=== PATIENT | female | born 1955 | race Caucasian/White ===

== ENCOUNTER 2017-10-22 13:38 | Inpatient (IN) ==
[2017-10-22] MEDS ORDERED: Vancomycin Inj 1,500 MG in Sodium Chlor 0.9% Inj 500 ML IV.SIG ONE (14:53)
[2017-10-22 15:50] LABS: Baso % (Auto) 0.7 % (0.0-2.0); Eos % (Auto) 0.6 % (0.0-4.0); Hematocrit 43.4 % (35.0-46.0); Hemoglobin 14.8 gm/dL (11.6-15.3); Lymph # (Auto) 1.4 th/mm3 (1.0-4.8); Lymph % (Auto) 20.9 % (9.0-44.0); Mean Corpuscular HGB Conc 34.1 % (32.0-36.0); Mean Corpuscular Hemoglobin 32.1 pg (27.0-34.0); Mean Corpuscular Volume 94.4 fL (80.0-100.0); Mean Platelet Volume 7.5 fL (7.0-11.0); Mono # (Auto) 0.5 th/mm3 (0.0-0.9); Mono % (Auto) 6.9 % (0.0-8.0); Neut # (Auto) 4.8 th/mm3 (1.8-7.7); Neut % (Auto) 70.9 % (16.0-70.0); Platelet Count 244 th/mm3 (150-450); Red Cell Distribution Width 12.2 % (11.6-17.2); White Blood Count 6.7 th/mm3 (4.0-11.0)
[2017-10-22 16:06] LABS: Calcium 9.2 mg/dL (8.5-10.1); Carbon Dioxide 25.2 meq/L (21.0-32.0); Potassium 3.8 meq/L (3.5-5.1)
[2017-10-22] MEDS ORDERED: Vancomycin Consult Pharmacy 1 EACH OTHER SCH (17:00)
--- NOTE | 2017-10-22 17:10 | P.HPIM ---
History of Present Illness Primary Care Physician: Jeffery Wayne DO History of Present Illness: Pt is 61 yo female with hx breast ca and htn. Presents after 1 month of dealing with left plantar foot wound. She is unaware of how it occurred but developed a left plantar wound that she says has been debrided by podiatry 2-3 times. She says the wound used to be red and has been treated with doxycycline, then cipro and clindamycin until this past Wednesday. Went for MRI of the foot and possible abscess/fluid collection near the first metatarsophalangeal joint. She was sent to ED by podiatry and admission requested for drainage. ED started vancomycin. PMH right breast ca. s/p lumpectomy and radiation left breast dcis. s/p tamoxifen htn hyperlipidemia left tka , appe,hysterectomy SH. 1-2 glasses wine daily no tobacco FH nc - Diagnosis (1) Foot abscess, left Inpatient Certification: I certify that the inpatient services were ordered in accordance with Medicare regulations governing the order. This includes certification that hospital inpatient services are reasonable and necessary and in the case of services not specified as inpatient-only under 42 CFR 419.22(n), that they are appropriately provided as inpatient services in accordance to with the 2-midnight benchmark under 43 CFR 412.3(e) Estimated Total Length of Stay (Days): 3 Plans for Post Hospital Care: Home Review of Systems left foot wound PMFSH - History History Provided By: Patient - Medical History Medical History: Medical History (Last Updated 10/22/17 @ 14:53 by Priscila Chapin) Breast cancer HLD (hyperlipidemia) HTN (hypertension) History of hysterectomy Lymphedema - Surgical History Surgical History: Surgical History (Last Updated 10/22/17 @ 14:53 by Priscila Chapin) History of appendectomy History of left knee replacement History of left knee surgery Status post right breast lumpectomy - Tobacco History Second Hand Smoke Exposure: No Smoking Status: Former smoker - Alcohol History How Often Do You Have a Drink Containing Alcohol: 4 or more times a week - Substance Use History Substance History: No History of Abuse - Travel History Recent Travel in the [place] Within the Last 8 Weeks: No Recent Travel Out of the Country Within the Last 8 Weeks: No - Immunization History Tetanus Immunization: <5 Years Hx Influenza Vaccine This Season: Yes Medications and Allergies Active Medications: Active Medications Atorvastatin Calcium (Lipitor) 20 mg PO HS [facility] Pharmacy Profile Note (Vancomycin Consult Pharmacy) 0 mls @ 0 mls/hr [facility] [place] Lisinopril (Prinivil) 20 mg PO BID [facility] Allergies Allergy/AdvReac Type Severity Reaction Status Date / Time celecoxib [From Celebrex] Allergy Mild rasH Verified 10/22/17 14:52 loratadine [From Claritin] Allergy Mild rash Verified 10/22/17 14:53 Penicillins Allergy Mild rasH Verified 10/22/17 14:52 Sulfa (Sulfonamide Allergy rash Verified 10/22/17 14:52 Antibiotics) Home Medications Medication Instructions Recorded Confirmed Type atorvastatin 20 mg PO HS 10/22/17 10/22/17 History fosinopril 20 mg PO BID 10/22/17 10/22/17 History Exam Vital signs: Vital Signs 10/22/17 13:42 Temperature 98.7 F Pulse Rate 85 Respiratory Rate 14 Blood Pressure 156/91 H Pulse Oximetry 96 Intake & Output 10/21/17 10/22/17 10/22/17 18:59 06:59 18:59 Weight 64.41 kg heart reg lung cta abd s/nt ext no pitting left plantar. between first/second met head small area of hemosiderin. no redness or drainage. some fluctuance. callus noted. Results - Labs CBC & Chem 7: 10/22/17 15:35 10/22/17 15:35 Labs: Short CBC 10/22/17 Range/Units 15:35 WBC 6.7 (4.0-11.0) th/mm3 Hgb 14.8 (11.6-15.3) gm/dL Hct 43.4 (35.0-46.0) % Plt Count 244 (150-450) th/mm3 BMP 10/22/17 15:35 Sodium 138 Potassium 3.8 Chloride 104 Carbon Dioxide 25.2 BUN 18 Creatinine 0.69 Calcium 9.2 Caprini VTE Risk Assessment Caprini VTE Risk Assessment: No/Low Risk (score <= 1) Caprini Risk Assessment Model: Point Value = 1 Point Value = 2 Point Value = 3 Point Value = 5 Age 41-60 Minor surgery BMI > 25 kg/m2 Swollen legs Varicose veins or History of unexplained or recurrent spontaneous Oral contraceptives or hormone replacement Sepsis (< 1 month) Serious lung disease, including pneumonia (< 1 month) Abnormal pulmonary function Acute myocardial infarction Congestive heart failure (< 1 month) History of inflammatory bowel disease Medical patient at bed rest Age 61-74 Arthroscopic surgery Major open surgery (> 45 min) Laparoscopic surgery (> 45 min) Malignancy Confined to bed (> 72 hours) Immobilizing plaster cast Central venous access Age >= 75 History of VTE Family history of VTE Factor V Leiden Prothrombin [id number] Lupus anticoagulant Anticardiolipin antibodies Elevated serum homocysteine Heparin-induced thrombocytopenia Other congenital or acquired thrombophilia Stroke (< 1 month) Elective arthroplasty Hip, pelvis, or leg fracture Acute spinal cord injury (< 1 month) Prophylaxis Regimen: Total Risk Factor Score Risk Level Prophylaxis Regimen 0-1 Low Early ambulation 2 Moderate Order ONE of the following: *Sequential Compression Device (SCD) *Heparin 5000 units SQ BID 3-4 Higher Order ONE of the following medications: *Heparin 5000 units SQ TID *Enoxaparin/Lovenox 40 mg SQ daily (WT < 150 kg, CrCl > 30 mL/min) *Enoxaparin/Lovenox 30 mg SQ daily (WT < 150 kg, CrCl > 10-29 mL/min) *Enoxaparin/Lovenox 30 mg SQ BID (WT < 150 kg, CrCl > 30 mL/min) AND/OR *Sequential Compression Device (SCD) 5 or more Highest Order ONE of the following medications: *Heparin 5000 units SQ TID (Preferred with Epidurals) *Enoxaparin/Lovenox 40 mg SQ daily (WT < 150 kg, CrCl > 30 mL/min) *Enoxaparin/Lovenox 30 mg SQ daily (WT < 150 kg, CrCl > 10-29 mL/min) *Enoxaparin/Lovenox 30 mg SQ BID (WT < 150 kg, CrCl > 30 mL/min) AND *Sequential Compression Device (SCD) Assessment and Plan - Assessment (1) Foot abscess, left Code(s): L02.612 - Cutaneous abscess of left foot Status: Acute Plan: 1. left foot/plantar surface of first metatarsophalangeal joint fluid collection with inflammatory stranding 2. htn 3. hx breast ca discussed with Dr Garrison. plan for aspiration of the fluid collection tomorrow unless significant improvement overnight after abx. cont her home medications probable dc home tomorrow
[2017-10-22 17:57] LABS: Prothrombin Time 10.1 sec (9.8-11.6)
--- NOTE | 2017-10-22 18:14 | ED ---
HPI General Chief complaint: Extremity Injury, Lower Stated complaint: dr dominique Time Seen by Provider: 10/22/17 14:26 Source: patient and old records reviewed Mode of arrival: ambulatory Limitations: no limitations History of Present Illness HPI narrative: Patient arrives with a deep abscess in the left foot. She was at podiatry today and was advised to come to the ED plan for admission and a plan to undergo surgical incision and debridement. Patient has tried Keflex followed by clindamycin followed by [facility] over the course of the last month. She has not had any relief. Risk factors are unclear however the patient walks in the [place] and believes she may have caught the foot. MD complaint: other (foot abscess) Onset (ago): month(s) (1) Location: L foot Severity: moderate Relieving factors: none Context: other (unknown etiology, abx x 1 month) Related Data Home Medications Medication Instructions Recorded Confirmed atorvastatin 20 mg PO HS 10/22/17 10/22/17 fosinopril 20 mg PO BID 10/22/17 10/22/17 Allergies Allergy/AdvReac Type Severity Reaction Status Date / Time celecoxib [From Celebrex] Allergy Mild rasH Verified 10/22/17 14:52 loratadine [From Claritin] Allergy Mild rash Verified 10/22/17 14:53 Penicillins Allergy Mild rasH Verified 10/22/17 14:52 Sulfa (Sulfonamide Allergy rash Verified 10/22/17 14:52 Antibiotics) Review of Systems ROS: all other systems reviewed are negative PMFSH Medical History Medical History Breast cancer (Acute) HLD (hyperlipidemia) (Acute) HTN (hypertension) (Acute) History of hysterectomy (Acute) Lymphedema (Acute) Surgical History Surgical History History of appendectomy (Acute) History of left knee replacement (Acute) History of left knee surgery (Acute) Status post right breast lumpectomy (Acute) Social History Social History Substance History: No History of Abuse Second Hand Smoke Exposure: No Smoking Status: Former smoker How Often Do You Have a Drink Containing Alcohol: 4 or more times a week Recent Travel in [facility] within the Last 8 Weeks: No Recent Out of Country Travel within the Last 8 Weeks: No Immunization History Tetanus Immunization: <5 Years Hx Influenza Vaccine This Season: Yes Exam Narrative Exam Narrative: GENERAL: 61-year-old female pleasant well-nourished well- developed no acute distress SKIN: Focused skin assessment warm/dry. HEAD: Atraumatic. Normocephalic. EYES: Pupils equal and round. No scleral icterus. No injection or drainage. ENT: No nasal bleeding or discharge. Mucous membranes pink and moist. NECK: Trachea midline. No JVD. CARDIOVASCULAR: Regular rate and rhythm. No murmur appreciated. RESPIRATORY: No accessory muscle use. Clear to auscultation. Breath sounds equal bilaterally. GASTROINTESTINAL: Abdomen soft, non-tender, nondistended. Hepatic and splenic margins not palpable. MUSCULOSKELETAL: There is minimal swelling overlying the metatarsal head on the left side without significant overlying skin change. MSK is otherwise normal. NEUROLOGICAL: Awake and alert. No obvious cranial nerve deficits. Motor grossly within normal limits. Normal speech. PSYCHIATRIC: Appropriate mood and affect; insight and judgment normal. Course Initial Documented Vital Signs Temperature 98.7 F 10/22/17 13:42 Pulse Rate 85 10/22/17 13:42 Respiratory Rate 14 10/22/17 13:42 Blood Pressure 156/91 H 10/22/17 13:42 Pulse Oximetry 96 10/22/17 13:42 Last Documented Vital Signs Temperature 98.7 F 10/22/17 13:42 Pulse Rate 91 H 10/22/17 17:43 Respiratory Rate 18 10/22/17 17:43 Blood Pressure 169/82 H 10/22/17 17:43 Pulse Oximetry 98 10/22/17 17:43 Medical Decision Making MDM Narrative Medical decision making narrative: The patient will be admitted for a podiatry consultation. Case discussed with Dr. Brasher for [facility]. Vancomycin started here. Case discussed with Dr. Araujo for podiatry. N.p.o. past midnight recommended. Lab Data Lab results reviewed: Yes I reviewed the patient's lab results. Result diagrams: 10/22/17 15:35 10/22/17 15:35 Lab Results 10/22/17 10/22/17 10/22/17 Range/Units 15:35 15:35 17:29 WBC 6.7 (4.0-11.0) th/mm3 RBC 4.60 (4.00-5.30) mil/mm3 Hgb 14.8 (11.6-15.3) gm/dL Hct 43.4 (35.0-46.0) % MCV 94.4 (80.0-100.0) fL MCH 32.1 (27.0-34.0) pg MCHC 34.1 (32.0-36.0) % RDW 12.2 (11.6-17.2) % Plt Count 244 (150-450) th/mm3 MPV 7.5 (7.0-11.0) fL Neut % (Auto) 70.9 H (16.0-70.0) % Lymph % (Auto) 20.9 (9.0-44.0) % [place]yer % (Auto) 6.9 (0.0-8.0) % Eos % (Auto) 0.6 (0.0-4.0) % Baso % (Auto) 0.7 (0.0-2.0) % Neut # (Auto) 4.8 (1.8-7.7) th/mm3 Lymph # (Auto) 1.4 (1.0-4.8) th/mm3 [place]yer # (Auto) 0.5 (0.0-0.9) th/mm3 Eos # (Auto) 0.0 (0.0-0.4) th/mm3 Baso # (Auto) 0.0 (0.0-0.2) th/mm3 WBC Differential . Differential Comment Auto diff final PT 10.1 (9.8-11.6) sec INR 1.0 Ratio APTT (24.3-30.1) sec Sodium 138 (136-145) meq/L Potassium 3.8 (3.5-5.1) meq/L Chloride 104 (98-107) meq/L Carbon Dioxide 25.2 (21.0-32.0) meq/L Anion Gap 9 (5-15) meq/L BUN 18 (7-18) mg/dL Creatinine 0.69 (0.50-1.00) mg/dL Estimated GFR 86 L (>89) mL/min Random Glucose 100 (74-106) mg/dL Calcium 9.2 (8.5-10.1) mg/dL 10/22/17 Range/Units 17:29 WBC (4.0-11.0) th/mm3 RBC (4.00-5.30) mil/mm3 Hgb (11.6-15.3) gm/dL Hct (35.0-46.0) % MCV (80.0-100.0) fL MCH (27.0-34.0) pg MCHC (32.0-36.0) % RDW (11.6-17.2) % Plt Count (150-450) th/mm3 MPV (7.0-11.0) fL Neut % (Auto) (16.0-70.0) % Lymph % (Auto) (9.0-44.0) % Sawyer % (Auto) (0.0-8.0) % Eos % (Auto) (0.0-4.0) % Baso % (Auto) (0.0-2.0) % Neut # (Auto) (1.8-7.7) th/mm3 Lymph # (Auto) (1.0-4.8) th/mm3 [place]yer # (Auto) (0.0-0.9) th/mm3 Eos # (Auto) (0.0-0.4) th/mm3 Baso # (Auto) (0.0-0.2) th/mm3 WBC Differential Differential Comment PT (9.8-11.6) sec INR Ratio APTT 22.2 L (24.3-30.1) sec Sodium (136-145) meq/L Potassium (3.5-5.1) meq/L Chloride (98-107) meq/L Carbon Dioxide (21.0-32.0) meq/L Anion Gap (5-15) meq/L BUN (7-18) mg/dL Creatinine (0.50-1.00) mg/dL Estimated GFR (>89) mL/min Random Glucose (74-106) mg/dL Calcium (8.5-10.1) mg/dL Discharge Plan Discharge Disposition Patient Disposition: 30 Still Patient Physicians Team ED Provider: [place] Primary Care Provider: Jeffery Wayne Attending Provider: Kali Brasher Other Providers: Sulaiman Araujo Discharge Interventions Interventions: Vital Signs Last Done: 10/22/17 13:42 Status ED Status: Admitted Patient
[2017-10-22] MEDS: Lisinopril 20 MG Tablet PO SCH (21:57)
[2017-10-22] MEDS ORDERED: Lidocaine 1% Inj 50 ML Vial INFILTRATN ONE (22:24)
--- NOTE | 2017-10-22 23:35 | MB ---
cc: Sulaiman GarrisonM DATE: 10/22/2017 REASON FOR CONSULTATION: Evaluate for left lower extremity abscess/cellulitis, injury. HISTORY OF PRESENT ILLNESS: This is a 61-year-old female who is known to my partner, Dr. Anthony. The patient has undergone Keflex, Cipro and clindamycin over the past month and has not had any significant relief. Upon receiving a MRI, there was noted to be a positive abscess in the plantar aspect of the first MPJ. I am the cover for my group. I have seen the patient at bedside. The patient is having only mild to moderate symptoms, at best. She does have a history of a lipoma that had to be treated by dermatology. She does not recall any significant bacterial growth. She is here today to have the foot evaluated for possible incision and drainage and IV antibiotics. The patient does admit to an abrasion walking on the beach every day. She does not recall any obvious puncture wounds. This has been going on for about a month. PAST MEDICAL HISTORY: Positive for breast cancer, hyperlipidemia, hypertension, hysterectomy and lymphedema. PAST SURGICAL HISTORY: Appendectomy, history of left knee replacement and right breast lumpectomy. SOCIAL HISTORY: Former smoker. Alcohol, 4 or more times a week. IMAGING DATA: Outpatient MRI studies apparent for negative for osteomyelitis, but possible abscess or fluid collection beneath the left first MPJ. OUTPATIENT MEDICATIONS: Reviewed and verified. INPATIENT MEDICATIONS: The patient is receiving vancomycin. Please see complete medication list in the chart. ALLERGIES: CELECOXIB, LORATADINE, PENICILLINS AND SULFA. PHYSICAL EXAMINATION: VITAL SIGNS: Temperature 98.7, pulse rate 91, respiratory rate 18, blood pressure 169/82. The patient is sating 98% on room air. GENERAL: This is an alert and oriented female seen at bedside exhibiting nonlabored respirations. She is verbal and appropriate. BILATERAL LOWER EXTREMITIES: Upon examining the left lower extremity, there appears to be superficial hemorrhagic callus in the plantar aspect of the first MPJ. Upon comparing to the contralateral extremity, there is mild swelling. There is no obvious redness. There is no obvious extreme pain, only mild pain. Upon range of motion of digits, there is no crepitus or instability. Pedal pulses are fully palpable. Sensation appeared to be intact. LABORATORY DATA: White blood cells 6.7, hemoglobin and hematocrit 14 and 43, platelet count 244. Chem-7: Sodium 138, potassium 3.8, chloride 104, CO2 of 25.2, BUN 18, creatinine 0.69, glucose 100. ASSESSMENT: Left foot deep abscess versus bursa. PLAN: Recommending IV antibiotics overnight. We will evaluate the patient in the morning; however, may need aspiration of the area versus incision and drainage. I appreciate medicine admitting this patient and assisting with antibiotic management. I discussed the case with medicine. I will see the patient in the a.m. for likely aspiration of the area if there is no improvement. BHAVYA Jose/melissa , 10:23 PM , 10:31 PM
--- NOTE | 2017-10-23 09:46 | P.PNIM ---
Subjective Interval history: Pt feeling well this Less pain in the left foot Afebrile Physical Exam Vital signs: Vital Signs 10/22/17 13:42 10/22/17 17:43 10/22/17 22:20 Temperature 98.7 F 97.5 F L Pulse Rate 85 91 H 86 Respiratory Rate 14 18 16 Blood Pressure 156/91 H 169/82 H 205/95 H Pulse Oximetry 96 98 98 10/23/17 00:00 10/23/17 07:58 Temperature 97.7 F 98.1 F Pulse Rate 84 75 Respiratory Rate 16 18 Blood Pressure 159/94 H 160/78 H Pulse Oximetry 99 97 Intake & Output 10/22/17 10/23/17 10/23/17 18:59 06:59 18:59 Intake Total 210 / 210 Balance 210 / 210 Weight 64.41 kg 65 kg Intake: Oral 210 / 210 Other: # Voids 3 Narrative: General: NAD, AAOx3 Chest: CTA Cardiac: Regular Abd: +BS, soft ND/NT Ext: Left foot with an area between first/second met head with a callus with a small area of hemosiderin. No redness or drainage. + fluctuance. Results - Labs CBC & Chem 7: 10/22/17 15:35 10/22/17 15:35 Laboratory Results - last 24 hr 10/22/17 10/22/17 10/22/17 15:35 15:35 17:29 WBC 6.7 RBC 4.60 Hgb 14.8 Hct 43.4 MCV 94.4 MCH 32.1 MCHC 34.1 RDW 12.2 Plt Count 244 MPV 7.5 Neut % (Auto) 70.9 H Lymph % (Auto) 20.9 [place] % (Auto) 6.9 Eos % (Auto) 0.6 Baso % (Auto) 0.7 Neut # (Auto) 4.8 Lymph # (Auto) 1.4 [place] # (Auto) 0.5 Eos # (Auto) 0.0 Baso # (Auto) 0.0 WBC Differential . Differential Comment Auto diff final PT 10.1 INR 1.0 APTT Sodium 138 Potassium 3.8 Chloride 104 Carbon Dioxide 25.2 Anion Gap 9 BUN 18 Creatinine 0.69 Estimated GFR 86 L Random Glucose 100 Calcium 9.2 10/22/17 17:29 WBC RBC Hgb Hct MCV MCH MCHC RDW Plt Count MPV Neut % (Auto) Lymph % (Auto) [place] % (Auto) Eos % (Auto) Baso % (Auto) Neut # (Auto) Lymph # (Auto) [place] # (Auto) Eos # (Auto) Baso # (Auto) WBC Differential Differential Comment PT INR APTT 22.2 L Sodium Potassium Chloride Carbon Dioxide Anion Gap BUN Creatinine Estimated GFR Random Glucose Calcium Assessment and Plan - Assessment (1) Foot abscess, left Code(s): L02.612 - Cutaneous abscess of left foot Status: Acute Plan: Left foot/plantar surface of first metatarsophalangeal joint fluid collection with inflammatory stranding - Podiatry is following. - Pt is planned for aspiration of the fluid collection today at bedside - Cont IV Vancomycin - Supportive care - Further recommendations as the case develops HTN - Home meds continued Hx breast ca
--- NOTE | 2017-10-23 10:08 | P.PNPOD ---
Subjective Interval history: Left foot improved Physical Exam Vital signs: Vital Signs 10/22/17 13:42 10/22/17 17:43 10/22/17 22:20 Temperature 98.7 F 97.5 F L Pulse Rate 85 91 H 86 Respiratory Rate 14 18 16 Blood Pressure 156/91 H 169/82 H 205/95 H Pulse Oximetry 96 98 98 10/23/17 00:00 10/23/17 07:58 Temperature 97.7 F 98.1 F Pulse Rate 84 75 Respiratory Rate 16 18 Blood Pressure 159/94 H 160/78 H Pulse Oximetry 99 97 Intake & Output 10/22/17 10/23/17 10/23/17 18:59 06:59 18:59 Intake Total 210 / 210 Balance 210 / 210 Weight 64.41 kg 65 kg Intake: Oral 210 / 210 Other: # Voids 3 - Constitutional no acute distress - Neurological Alert and oriented x3 - Routine Extremities Exam Present: pulses intact, normal capillary refill, tenderness. Absent: edema Comments: Left lower extremity first MPJ, mild pain plantar lateral first MPJ no obvious fluctuance no obvious erythema superficial dried blood seen along plantar callus that does not appear to be communicating ulcer or abscess good range of motion of digits, slight improvement in clinical presentation in the last 24 hours Medications and Allergies Active Medications: Active Medications Atorvastatin Calcium (Lipitor) 20 mg PO [facility] Last Admin: 10/22/17 21:57 Dose: 20 mg Pharmacy Profile Note (Vancomycin Consult Pharmacy) 0 mls @ 0 mls/hr [facility] Vancomycin HCl 1,500 mg/ (Sodium Chloride) 515 mls @ 250 mls/hr IV.SIG Q24H [facility] Lisinopril (Prinivil) 20 mg PO BID [facility] Last Admin: 10/22/17 21:57 Dose: 20 mg Miscellaneous Information ([facility] Ordered Lab Info) 1 each OTHER ONCE ONE Stop: 10/25/17 14:46 Allergies Allergy/AdvReac Type Severity Reaction Status Date / Time celecoxib [From Celebrex] Allergy Mild rasH Verified 10/22/17 14:52 loratadine [From Claritin] Allergy Mild rash Verified 10/22/17 14:53 Penicillins Allergy Mild rasH Verified 10/22/17 14:52 Sulfa (Sulfonamide Allergy rash Verified 10/22/17 14:52 Antibiotics) Home Medications Medication Instructions Recorded Confirmed Type RX: atorvastatin 20 mg PO 10/22/17 10/22/17 History RX: fosinopril 20 mg PO BID 10/22/17 10/22/17 History Results - Labs CBC & Chem 7: 10/22/17 15:35 10/22/17 15:35 Laboratory Results - last 24 hr 10/22/17 10/22/17 10/22/17 15:35 15:35 17:29 WBC 6.7 RBC 4.60 Hgb 14.8 Hct 43.4 MCV 94.4 MCH 32.1 MCHC 34.1 RDW 12.2 Plt Count 244 MPV 7.5 Neut % (Auto) 70.9 H Lymph % (Auto) 20.9 [facility] % (Auto) 6.9 Eos % (Auto) 0.6 Baso % (Auto) 0.7 Neut # (Auto) 4.8 Lymph # (Auto) 1.4 [facility] # (Auto) 0.5 Eos # (Auto) 0.0 Baso # (Auto) 0.0 WBC Differential . Differential Comment Auto diff final PT 10.1 INR 1.0 APTT Sodium 138 Potassium 3.8 Chloride 104 Carbon Dioxide 25.2 Anion Gap 9 BUN 18 Creatinine 0.69 Estimated GFR 86 L Random Glucose 100 Calcium 9.2 10/22/17 17:29 WBC RBC Hgb Hct MCV MCH MCHC RDW Plt Count MPV Neut % (Auto) Lymph % (Auto) [facility] % (Auto) Eos % (Auto) Baso % (Auto) Neut # (Auto) Lymph # (Auto) [facility] # (Auto) Eos # (Auto) Baso # (Auto) WBC Differential Differential Comment PT INR APTT 22.2 L Sodium Potassium Chloride Carbon Dioxide Anion Gap BUN Creatinine Estimated GFR Random Glucose Calcium Assessment and Plan - Assessment (1) Foot abscess, left Code(s): L02.612 - Cutaneous abscess of left foot Status: Acute - Plan After verbal informed written consent and appropriate timeout, bedside procedure to place. The left foot was scrubbed and prepped with Betadine swab utilizing sterile technique aspirate was performed of the first MPJ. This was done under 1% lidocaine anesthesia field block performed prior to inserting needle for fluid collection. Patient tolerated procedure well, fluid analysis of serosanguineous we would was sent as well as swab for Gram stain and culture. I recommend to continue bed rest IV antibiotics will advise pending fluid analysis and culture. Medicine advised. If the patient is to bear weight she is to be only he will weight-bear.
[2017-10-23] MEDS: Lisinopril 20 MG Tablet PO SCH ×2 (10:51→21:56)
[2017-10-23 12:43] LABS: Color,Synovial Fluid Red (Straw)
[2017-10-23 12:48] LABS: Neutrophils,Synovial Fluid ND % (0-25)
[2017-10-23] MEDS ORDERED: Vancomycin Inj 1,500 MG in Sodium Chlor 0.9% Inj 500 ML IV.SIG SCH (15:00)
[2017-10-24 08:49] VITALS: RESP 16
[2017-10-24] MEDS ORDERED: Acetaminophen 325 MG Tablet PO PRN (09:01)
--- NOTE | 2017-10-24 09:05 | P.PNIM ---
Subjective Interval history: Pt is less anxious today and having less pain She reports that the Tramadol made her sick and she vomited yesterday evening BP is better today Physical Exam Vital signs: Vital Signs 10/23/17 12:00 10/23/17 16:00 10/23/17 20:00 Temperature 98.5 F 97.8 F 98.0 F Pulse Rate 76 78 68 Respiratory Rate 18 16 16 Blood Pressure 186/93 H 167/88 H 152/76 H Pulse Oximetry 98 98 95 10/24/17 00:00 10/24/17 08:00 Temperature 97.8 F 97.4 F L Pulse Rate 71 78 Respiratory Rate 18 16 Blood Pressure 134/77 133/75 Pulse Oximetry 99 96 Intake & Output 10/23/17 10/24/17 10/24/17 18:59 06:59 18:59 Intake Total 500 / 500 515 / 515 Balance 500 / 500 515 / 515 Intake: IV 500 / 500 515 / 515 Vancomycin Inj 1,500 MG In NS 500 / 500 0 / 0 Inj 500 ML @ 250 mls/hr IV.SIG Q24H [facility] Rx#:[id number] Other: # Voids 2 Narrative: General: NAD, AAOx3 Chest: CTA Cardiac: Regular Abd: +BS, soft ND/NT Ext: Left foot bandages are c/d/i Results - Labs CBC & Chem 7: 10/22/17 15:35 10/22/17 15:35 Laboratory Results - last 24 hr 10/23/17 10/23/17 10:00 10:00 Synovial Color Red H Synovial Appearance Synovial RBC ND Synovial Nuc Cells ND Synovial Neutrophils ND Synovial Crystals ND Synovial Fluid Comment Microbiology 10/23/17 10:00 Fluid - Synovial Fluid Gram Stain - Final Assessment and Plan - Assessment (1) Foot abscess, left Code(s): L02.612 - Cutaneous abscess of left foot Status: Acute Plan: Left foot/plantar surface of first metatarsophalangeal joint fluid collection with inflammatory stranding - Podiatry is following. - Pt underwent aspiration of the fluid at bedside on 10/23 - Gram stain with rare WBCs, no organisms - Fluid culture is pending. - Cont IV Vancomycin - NWB on left foot. - Tylenol PRN for pain - Ativan PRN anxiety - Supportive care HTN - Home meds continued Hx breast ca The exam, history, and the medical decision-making described in the above note were completed with the assistance of the mid-level provider. I reviewed and agree with the findings presented. I attest that I had a [id number] encounter with the patient on the same day, and personally performed and documented my assessment and findings in the medical record. pt eager for dc. fluid cx ngtd x 24hr. spoke to Dr Garrison...ok to dc...heel weight bear. no abx. f/u this week podiatry office. pt has walker.
[2017-10-24] MEDS: Lisinopril 20 MG Tablet PO SCH (09:22)
--- NOTE | 2017-10-24 10:20 | P.PNPOD ---
Subjective Interval history: Mild pain after bedside procedure otherwise doing well Physical Exam Vital signs: Vital Signs 10/23/17 12:00 10/23/17 16:00 10/23/17 20:00 Temperature 98.5 F 97.8 F 98.0 F Pulse Rate 76 78 68 Respiratory Rate 18 16 16 Blood Pressure 186/93 H 167/88 H 152/76 H Pulse Oximetry 98 98 95 10/24/17 00:00 10/24/17 08:00 Temperature 97.8 F 97.4 F L Pulse Rate 71 78 Respiratory Rate 18 16 Blood Pressure 134/77 133/75 Pulse Oximetry 99 96 Intake & Output 10/23/17 10/24/17 10/24/17 18:59 06:59 18:59 Intake Total 500 / 500 515 / 515 Balance 500 / 500 515 / 515 Intake: IV 500 / 500 515 / 515 Vancomycin Inj 1,500 MG In NS 500 / 500 0 / 0 Inj 500 ML @ 250 mls/hr IV.SIG Q24H [facility] Rx#:[id number] Other: # Voids 2 - Constitutional no acute distress - Neurological Alert and oriented x3 - Routine Extremities Exam Comments: Left lower extremity examined minimal swelling minimal pain good range of motion of first MPJ small superficial dried blood noted on the plantar skin no draining no obvious signs of infection Medications and Allergies Active Medications: Active Medications Acetaminophen (Tylenol) 650 mg PO Q4H PRN PRN Reason: pain 2-10, fever, headache Atorvastatin Calcium (Lipitor) 20 mg PO [facility] Last Admin: 10/23/17 21:56 Dose: 20 mg Pharmacy Profile Note (Vancomycin Consult Pharmacy) 0 mls @ 0 mls/hr OTHER UNSCH [facility] Vancomycin HCl 1,500 mg/ (Sodium Chloride) 515 mls @ 250 mls/hr IV.SIG Q24H [facility] Last Infusion: 10/24/17 06:54 Dose: Infused Lisinopril (Prinivil) 20 mg PO BID [facility] Last Admin: 10/24/17 09:22 Dose: 20 mg Lorazepam (Ativan Inj) 0.25 mg IV.PUSH Q4H PRN PRN Reason: ANXIETY Last Admin: 10/23/17 16:29 Dose: 0.25 mg Miscellaneous Information ([facility] Ordered Lab Info) 1 each OTHER ONCE ONE Stop: 10/25/17 14:46 Allergies Allergy/AdvReac Type Severity Reaction Status Date / Time celecoxib [From Celebrex] Allergy Mild rasH Verified 10/22/17 14:52 loratadine [From Claritin] Allergy Mild rash Verified 10/22/17 14:53 Penicillins Allergy Mild rasH Verified 10/22/17 14:52 Sulfa (Sulfonamide Allergy rash Verified 10/22/17 14:52 Antibiotics) Home Medications Medication Instructions Recorded Confirmed Type atorvastatin 20 mg PO HS 10/22/17 10/22/17 History fosinopril 20 mg PO BID 10/22/17 10/22/17 History Results - Labs CBC & Chem 7: 10/22/17 15:35 10/22/17 15:35 Laboratory Results - last 24 hr 10/23/17 10/23/17 10:00 10:00 Synovial Color Red H Synovial Appearance Synovial RBC ND Synovial Nuc Cells ND Synovial Neutrophils ND Synovial Crystals ND Synovial Fluid Comment Microbiology 10/23/17 10:00 Fluid - Synovial Fluid Gram Stain - Final Assessment and Plan - Assessment (1) Foot abscess, left Code(s): L02.612 - Cutaneous abscess of left foot Status: Acute - Plan Patient appears to be doing well, synovial analysis did not show any obvious bacteria microbial analysis is still pending. It is likely best to wait for wound culture before the patient is discharged on empiric oral antibiotics however I will recommend upon discharge the patient go to he will weight-bear ambulation. I will sign out to Dr. Castro
[2017-10-24 12:33] VITALS: BP 137/83; PULSE 87; TEMP 97.9; O2SAT 97
[2017-10-25] MEDS ORDERED: Pharmacy Ordered Lab Info OTHER ONE (14:45)
== END 2017-10-24 15:18 | disposition home or self-care (01) ==
LOC: NEPD 13:38 → NEDA 16:10 → N07 23:08
PROVIDERS: ADMIT Hospitalist; ATTEND Hospitalist